=== PATIENT | male | born 1970 | race Caucasian/White ===

== ENCOUNTER 2025-01-19 11:50 | Day surgery (SDC) | payer OTHER, SELFPAY ==
--- NOTE | 2025-01-12 12:57 | EKG12_ITS ---
Test Reason : PREOP Blood Pressure : */* mmHG Vent. Rate : 60 BPM Atrial Rate : 60 BPM P-R Int : 182 ms QRS Dur : 84 ms QT Int : 386 ms P-R-T Axes : 55 -13 21 degrees QTcB Int : 386 ms Normal sinus rhythm Low voltage QRS Borderline ECG Confirmed by George Guevara ([id number]), school photograph editor KRISTEN DOUGLASS ([id number]) on 01/16/2025 11:31:23 AM Referred By: Naveen Huston Confirmed By: George Guevara
--- NOTE | 2025-01-12 14:41 | PAT.ANE_ITS ---
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 When Was Last Pacemaker Check QUESTION #4 FULL TEXT: You/Your Family Experience fever (hyperthermia) with Anesthesia Last Oral Intake Last Oral intake: Last Oral Intake NPO since Meds taken in AM with sips of water? Meds patient instructed to take am of surgery PONV PONV - biology department chair: PONV - biology department chair Female No 01/05/25 08:37 HX of Motion Sickness No 01/05/25 08:37 HX of N/V After Surgery No 01/05/25 08:37 Non-Smoker Yes 01/05/25 08:37 Duration of Surgery greater Yes 01/05/25 08:37 than 60 minutes Number of Risk Factors 2 01/05/25 08:37 PONV Score Moderate Risk 01/05/25 08:37 Respiratory Assessment Respiratory Assessment - biology department chair: Respiratory Tract Infection Hx - biology department chair Hx Respiratory Tract Infection No 01/05/25 08:37 STOP Sleep Apnea STOP Sleep Apnea - biology department chair: STOP Sleep Apnea - biology department chair Hx Hypertension Yes: PER PT, CONTROLLED ON 01/05/25 08:37 MEDS Hx Sleep Apnea No 01/05/25 08:37 CPAP BIPAP Do you snore loudly (louder No 01/05/25 08:37 than talking or can be heard Do you often feel tired/ No 01/05/25 08:37 fatigued/ sleepy during daytime? Has anyone observed you stop No 01/05/25 08:37 breathing during sleep? STOP Results Negative 01/05/25 08:37 QUESTION #5 FULL TEXT : Do you snore loudly (louder than talking or can be heard through closed doors)? 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 Specify any problems Hx of Preganancy in last 3 N/A 01/05/25 08:37 Months Nurse Filling Out Transfusion MGRIFFITH 01/05/25 08:37 & Questions: Date: 01/05/25 01/05/25 08:37 Time: 08:40 01/05/25 08:37 Patient unable to answer at this time (ie. confused, unrespo /Reproduction History /Reproductive History - biology department chair: /Reproductive Hx- biology department chair Hx Now Gestational Age (in weeks): EDC: Hx Hx Para Hx Section SAB PFSH Medical History (Updated 01/05/25 @ 08:48 by Susana Levin) Edentulous Restless legs Heartburn Shortness of breath on exertion Non-smoker HTN (hypertension) Gout Arthritis Thyroid disease Home Medications ?Medication ?Instructions ?Recorded ?Last Taken ?Type amlodipine 5 mg-valsartan 160 mg 1 tab PO 1500 5 Unknown History tablet levothyroxine 125 mcg capsule 125 mcg PO 1630 12/05/24 Unknown History Allergy/AdvReac Type Severity Reaction Status Date / Time No Known Allergies Allergy Verified 01/05/25 08:32 Family History Sister Heart disease Father Hypertension Thyroid disorder Surgical History (Updated 01/05/25 @ 08:37 by Susana Levin) History of tooth extraction Social History Smoking Status: Never smoker alcohol intake: never Audit: Pertinent Findings Pertinent Findings EKG Perinent findings: 01/12/2025: NSR Recommendation Anesthesia Recommendation Anesthesia recommendation: OPTIMIZED for anesthesia
[2025-01-19] VITALS (11 sets, daily range): BP systolic 117–143; BP diastolic 72–94; PULSE 65–94; RESP 14–18; TEMP 36.2–36.6; O2SAT 93–96; BMI 38.1
[2025-01-19] MEDS: Lactated Ringers 1,000 ML 15 ML IV (12:36)
--- NOTE | 2025-01-19 12:43 | PRE.ANES_ITS ---
ASA Classification* ASA Classification ASA Classification: 2 Assessment & Plan Anesthesia* Anesthesia Assessment Anesthesia Assessment: Discussed sedation and/or anesthesia options, risks, benefits, and alternatives with patient/parents/legal guardian/POA. Questions invited. The patient/parents/legal guardian/POA seems to understand and agrees to proceed with anesthesia plan. Reviewed the physical assessment, medical history, allergy history and patient home medications list prior to surgery/procedure/anesthetic and documented any changes. Performed airway and anesthesia risk assessments. Anesthesia Type Anesthesia Type: General History Source History Obtained from:: Patient and Chart Anesthesia Focused Assessment* Temperature: 97.8 F Pulse Rate: 65 Blood Pressure: 143/86 Respiratory Rate: 18 Pulse Ox: 96 Oxygen Delivery Method: Room Air Airway Assessment Mouth opens: >3 cm Mallampati Score: III Teeth Condition: Missing (Patient is edentulous.) Neck Range of motion (ROM): Full ROM Focused Labs Anesthesia Preop lab: CBC CHEMISTRY TSH 8.360 uIU/mL (0.300-4.200) H 01/12/25 13:11 COAG Pre-Assessment Diagnosis/Proposed Procedure Planned Operative Procedure(s): (R) Robotic right inguinal hernia with mesh Anesthesia History Anesthesia History - director of knowledge management: Anesthesia History - director of knowledge management Hx Hospitalization No 01/05/25 08:37 Any Problems With Anesthesia No 01/05/25 08:37 Cholinesterase deficiency No 01/05/25 08:37 You/Your Family Experience No 01/05/25 08:37 fever (hyperthermia) with Relationship Recent Exposure to Contagious No 01/19/25 12:33 Disease Does patient have nerve No 01/05/25 08:37 stimulator Patient instructed to have device shut off --Does patient have Pacemaker No 01/19/25 12:33 or ICD? When Was Last Pacemaker Check QUESTION #4 FULL TEXT: You/Your Family Experience fever (hyperthermia) with Anesthesia Last Oral Intake Last Oral intake: Last Oral Intake NPO since 07:00 01/19/25 12:33 Meds taken in AM with sips of Yes 01/19/25 12:33 water? Meds patient instructed to take am of surgery Any additional information?: Yes Meds taken in AM with sips of water?: Yes PONV PONV - director of knowledge management: PONV - director of knowledge management Female No 01/05/25 08:37 HX of Motion Sickness No 01/05/25 08:37 HX of N/V After Surgery No 01/05/25 08:37 Non-Smoker Yes 01/05/25 08:37 Duration of Surgery greater Yes 01/05/25 08:37 than 60 minutes Number of Risk Factors 2 01/05/25 08:37 PONV Score Moderate Risk 01/05/25 08:37 Height & Weight Height & Weight: Anesthesia: Height & Weight Height 5 ft 7 in 01/19/25 12:33 Weight: 110.4 kg 01/19/25 12:33 Body Mass Index (BMI) 38.1 01/19/25 12:33 Respiratory Assessment Respiratory Assessment - director of knowledge management: Respiratory Tract Infection Hx - director of knowledge management Hx Respiratory Tract Infection No 01/05/25 08:37 Any additional information?: Yes Hx Respiratory Tract Infection: Yes (Patient had a cold last week. resolved for 3 days now. Occasional cough.) STOP Sleep Apnea STOP Sleep Apnea - director of knowledge management: STOP Sleep Apnea - director of knowledge management Hx Hypertension Yes: PER PT, CONTROLLED ON 01/05/25 08:37 MEDS Hx Sleep Apnea No 01/05/25 08:37 CPAP BIPAP Do you snore loudly (louder No 01/05/25 08:37 than talking or can be heard Do you often feel tired/ No 01/05/25 08:37 fatigued/ sleepy during daytime? Has anyone observed you stop No 01/05/25 08:37 breathing during sleep? STOP Results Negative 01/05/25 08:37 QUESTION #5 FULL TEXT : Do you snore loudly (louder than talking or can be heard through closed doors)? 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 Specify any problems Hx of Preganancy in last 3 N/A 01/05/25 08:37 Months Nurse Filling Out Transfusion MGRIFFITH 01/05/25 08:37 & Questions: Date: 01/05/25 01/05/25 08:37 Time: 08:40 01/05/25 08:37 Patient unable to answer at this time (ie. confused, unrespo /Reproduction History /Reproductive History - director of knowledge management: /Reproductive Hx- director of knowledge management Hx Now Gestational Age (in weeks): EDC: Hx Hx Para Hx Section SAB Active Medications Active Medications: Current Medications Generic Name Dose Route Start Last Admin Trade Name Freq PRN Reason Stop Dose Admin Cefazolin Sodium 2 gm/ Sodium 110 mls @ 150 mls/hr 01/19/25 13:30 Chloride IV 01/19/25 14:13 INTRAOP ONE Lactated Ringer's 1,000 mls @ 15 mls/hr 01/19/25 12:00 01/19/25 12:36 IV 15 mls/hr .Q48H ANA Administration PFSH Medical History Edentulous Restless legs Heartburn Shortness of breath on exertion Non-smoker HTN (hypertension) Gout Arthritis Thyroid disease Home Medications ?Medication ?Instructions ?Recorded ?Last Taken ?Type amlodipine 5 mg-valsartan 160 mg 1 tab PO 1500 5 01/19/25 07:00 History tablet levothyroxine 125 mcg capsule 125 mcg PO 1630 12/05/24 Unknown History Allergy/AdvReac Type Severity Reaction Status Date / Time No Known Allergies Allergy Verified 01/19/25 12:32 Family History Sister Heart disease Father Hypertension Thyroid disorder Surgical History History of tooth extraction Social History Smoking Status: Never smoker alcohol intake: never Review of Systems (Anesthesia) ROS Narrative System reviewed and no additional complaints, except as documented.
--- NOTE | 2025-01-19 13:34 | PCM.HP.STD ---
HPI - General General Date of Admission: 01/19/25 Date of Service: 01/19/25 HPI Narrative ROWENA EVERETT, is a 54 M who presents today for robotic repair of a right inguinal hernia. He was recently seen in my office. I offered him surgery to repair the hernia. He wished to proceed [facility] Medical History Edentulous Restless legs Heartburn Shortness of breath on exertion Non-smoker HTN (hypertension) Gout Arthritis Thyroid disease Home Medications ?Medication ?Instructions ?Recorded ?Last Taken ?Type amlodipine 5 mg-valsartan 160 mg 1 tab PO 1500 12/05/24 01/19/25 07:00 History tablet levothyroxine 125 mcg capsule 125 mcg PO 1630 12/05/24 Unknown History Allergy/AdvReac Type Severity Reaction Status Date / Time No Known Allergies Allergy Verified 01/19/25 12:32 Family History Sister Heart disease Father Hypertension Thyroid disorder Surgical History History of tooth extraction Social History Smoking Status: Never smoker alcohol intake: never Vital Signs Vital Signs Vital Signs: 01/19/25 12:33 01/19/25 12:33 01/19/25 12:51 Temperature 97.8 F 97.8 F Temperature Source Temporal Pulse Rate 65 65 Respiratory Rate 18 18 Respiratory Pattern Normal Blood Pressure 143/86 H 143/86 H Blood Pressure Mean 105 Blood Pressure Source Monitor Blood Pressure Position Sitting Blood Pressure Location Left Arm Pulse Ox 96 96 Oxygen Delivery Method Room Air Room Air Weight Weight: 243 lb 6.245 oz Body Mass Index (BMI) 38.1 Physical Exam Const alert, oriented x3 and no apparent distress Assessment & Plan Assessment/Plan (1) Inguinal hernia: PLAN: Plan Robotic right inguinal hernia repair with mesh planned for today
[2025-01-19] MEDS: Cefazolin 2 GM in 0.9% Normal Saline (100mL Bag) 100 ML IV (14:24)
[2025-01-19] MEDS: Bupiv/Epi 0.25% 30 ML Vial (14:40)
[2025-01-19] MEDS: Gentamicin 80 MG/2 ML Vial (14:40)
--- NOTE | 2025-01-19 16:10 | PCM.POST.ANE ---
Anesthesia: Postop Eval I Current Vital Signs Temperature: 97.1 F Pulse Rate: 84 Blood Pressure: 123/87 Respiratory Rate: 16 Pulse Ox: 93 Oxygen Delivery Method: Nasal Cannula Oxygen Flow Rate (L/min): 2 Assessment Airway patent: Yes Spontaneous unlabored respirations: Yes Mental status: Awake and Calm nausea: No Vomiting: No Anesthesia Complication: No Fluid Hydration Crystalloid volume administer (ml): 800 Total IV fluid infused: 800 Progress Note Anesthesia document: Postop Eval 1 completed: Yes
--- NOTE | 2025-01-19 16:14 | EX.PCM.DISCH ---
Discharge Instructions Diet Discharge Diet: Light diet - advance as tolerated Activity Discharge Activity: Return to Normal Activity May shower in (days): 1 Ice area for (Minutes): 30 Lifting Restrictions: No lifting pushing or pulling more than 20 pounds for 6 weeks Dressing / Incision Call your doctor if your incision/area has: Continuous Slow Oozing, Sudden Increased Bleeding, Increased Pain/ Swelling, Increased Redness, Foul Smelling Discharge and Swelling at the incision site Call your doctor if you observe: Fever of 101 or Higher Cleanse incision/area with: Soap & Water Follow Up Care Please Follow Up With: Naveen Huston MD When: 2 weeks. Please call office for appointment Test Results: Test results from this visit will be discussed in further detail at your follow-up appointment, if applicable. Discharge Plan Admission Primary Reason for Your Visit: Robotic right inguinal hernia repair Attending Provider: Naveen Huston Primary Care Provider: Care Physician,No Primary Instructions Print Language: Japanese Discharge Orders/Prescriptions Prescriptions: New oxycodone-acetaminophen [Percocet] 5-325 mg tablet 1 tab PO Q8H PRN (Reason: pain) 4 Days Qty: 12 0RF Continued levothyroxine 125 mcg capsule 125 mcg PO 1630 amlodipine-valsartan 5-160 mg tablet 1 tab PO 1500 Other Ambulatory Orders: 12 Lead EKG (Routine) Timeframe: 20250112 Location: None Selected Ordered By: Dr. Sarthak Greenberg Disposition Disposition (needs filled in before D/C Order can be placed): Home, Self Care
--- NOTE | 2025-01-19 16:23 | PCM.OPRPT ---
Problems Associated Problem List Diagnoses (1) Inguinal hernia: Procedures Digestive [id number]-49xxx: [id number] Lap ing hernia repair init Operative Report (Standard) Operative Information Date of Procedure: 01/19/25 Pre-Operative Diagnosis: Right inguinal hernia Post-Operative Diagnosis: Right inguinal hernia Surgery/Procedure Performed: Robotic right inguinal hernia repair with mesh fine artist: Yes Window Shade Ring Sewer: Petra Lui Tasks completed by assistant superintendent: Closing and Other Additional activity assistant?: No Type of Anesthesia: General and Local RN Documented Start/Stop Times: Operation Date: 01/19/25 13:30 Case Time Into Pre-Op 01/19/25 11:56 Out of Pre-Op 01/19/25 14:11 Anesthesia Start 01/19/25 14:19 Into Room 01/19/25 14:19 Procedure Start 01/19/25 14:40 Procedure End 01/19/25 15:56 Anesthesia End 01/19/25 16:01 Out of Room 01/19/25 16:01 Into Recovery 01/19/25 16:03 Procedure Start Time: 14:40 Procedure Stop Time: 15:56 Select all DRAINS/GRAFTS/IMPLANTS that apply: Prosthetic device Prosthetic device details: Covidien ProGrip mesh 10 x 15 cm Special Medications: 2 g Ancef IV Estimated Blood Loss: 10 mL Specimen collected: No Description of surgery: The patient is a 54-year-old male recently seen to the office of the right inguinal hernia. I offered him a robotic repair with mesh. We discussed the details of the planned procedure and he wished to proceed. He was brought the operating today following informed consent. Preoperative antibiotics were given and a timeout was performed. He was placed supine on the operative table with arms outstretched and arm boards. General anesthesia was induced. The abdomen is then prepped and draped in the usual sterile manner. An 8 mm incision was made just above the umbilicus which a 5 mm trocar was placed optically. This was placed without incident. Once in place the abdomen is then fully insufflated with CO2 gas. A 5 mm 0 degree scope was inserted. There were no signs of bowel or vascular injury. An 8 mm trocar was placed on the right side of the abdomen as well as another 8 mm trocar in the left side of the abdomen. Both of these were placed without incident. The robot was then brought into position and docked. The patient was placed into mild Trendelenburg positioning. The pelvis was visualized. No evidence of left-sided hernia. Right inguinal hernia was visualized. The peritoneum overlying the hernia on the right was incised in a lateral to medial direction using curved scissors. A subperitoneal plane was then developed. Patient had a direct inguinal hernia medially. This was reduced. He did not have an indirect component. Once sufficient dissection was performed a ProGrip 10 x 15 cm mesh was selected. It was trimmed to size. It was placed in antibiotic solution and inserted. This was laid across the dissection field covering over the fascial defect. This laid into position nicely. The peritoneum was then closed using a running V-Loc suture. This closed nicely. The remaining trocars were opened up and insufflation was allowed to escape. Local anesthetic was injected each in the incisions. Incisions were closed with 4-0 Vicryl. Skin glue was applied as dressing. He was awakened from anesthesia and taken to recovery in good condition. Surgical Findings: Right direct inguinal hernia Complications Complications: No Admit VTE Documentation VTE Present on Admission: No VTE Mechan Device Prophylaxis: SCD's VTE Pharm Prophylaxis ordered?: No Reason prophylaxis not ordered: Treatment Not Indicated
--- NOTE | 2025-01-19 19:12 | POSTOPAN2_ITS ---
Anesthesia Postop Eval I Sum Postop Eval Completion status Anesthesia document: Postop Eval 1 completed: Yes Anesthesia Postop Eval I Summary Anesthesia Postop Eval I Summary: Anesthesia Postop Eval I: Assessment Summary Airway patent Yes 01/19/25 16:11 [email or web address] Spontaneous unlabored Yes 01/19/25 16:11 [email or web address] respirations Mental status Awake,Calm 01/19/25 16:11 [email or web address] nausea No 01/19/25 16:11 CLOCK [email or web address] Vomiting No 01/19/25 16:11 CLOCK [email or web address] Anesthesia Postop Eval I: Fluid Summary Crystalloid volume administer 800 01/19/25 16:11 CLOCK [email or web address] (ml) Colloids volume administered ( ml) Blood Product volume administered (ml) Total IV fluid infused 800 01/19/25 16:11 CLOCK [email or web address] Anesthesia Postop Eval I: Summary Notes Anesthesia Complication No 01/19/25 16:11 CLOCK [email or web address] Anesthesia Complication Comment: Post-operative progress note Anesthesia: Postop Eval II Evaluation Mental status: Awake and Calm Pain Level: 1 nausea: No Vomiting: No Complications Anesthesia Complication: No
--- NOTE | 2025-01-19 19:12 | PCM.POSTANE2 ---
Anesthesia Postop Eval I Sum Postop Eval Completion status Anesthesia document: Postop Eval 1 completed: Yes Anesthesia Postop Eval I Summary Anesthesia Postop Eval I Summary: Anesthesia Postop Eval I: Assessment Summary Airway patent Yes 01/19/25 16:11 PRICING [email or web address] Spontaneous unlabored Yes 01/19/25 16:11 PRICING [email or web address] respirations Mental status Awake,Calm 01/19/25 16:11 PRICING [email or web address] nausea No 01/19/25 16:11 PRICING [email or web address] Vomiting No 01/19/25 16:11 PRICING [email or web address] Anesthesia Postop Eval I: Fluid Summary Crystalloid volume administer 800 01/19/25 16:11 PRICING [email or web address] (ml) Colloids volume administered ( ml) Blood Product volume administered (ml) Total IV fluid infused 800 01/19/25 16:11 PRICING [email or web address] Anesthesia Postop Eval I: Summary Notes Anesthesia Complication No 01/19/25 16:11 PRICING [email or web address] Anesthesia Complication Comment: Post-operative progress note Anesthesia: Postop Eval II Evaluation Mental status: Awake and Calm Pain Level: 1 nausea: No Vomiting: No Complications Anesthesia Complication: No
== END 2025-01-19 18:29 | disposition home or self-care (01) ==
LOC: SDC 11:53 → AC 11:54
PROVIDERS: Anesthesiology; Referring Provider Surgery; Visit Provider Surgery
PROC: (CPT 49650; principal; 2025-01-19 13:10)
DX: K40.90 Unilateral inguinal hernia, without obstruction or gangrene, not specified as recurrent (principal); I10 Essential (primary) hypertension; E07.9 Disorder of thyroid, unspecified
CPT/HCPCS: 49650; 00840; 36415; 84443; 93005; C1781; J2405